=== PATIENT | female | born 1970 | race American Indian/Alaskan Native ===

== ENCOUNTER 2021-09-19 12:27 | Outpatient (CLI) | payer MEDICARE ==
[2021-09-22 17:52] LABS: Albumin 4.4 g/dL (3.8-4.8); Gamma Globulin 1.6 g/dL (0.8-1.7)
[2021-09-25 22:35] LABS: ANA Screen, IFA Positive (Negative)
== END 2021-09-19 12:28 | disposition home or self-care (01) ==
LOC: LAB 12:27
PROVIDERS: ATTEND Specialist
DX: G61.9 Inflammatory polyneuropathy, unspecified (principal); G72.9 Myopathy, unspecified; E07.9 Disorder of thyroid, unspecified; A53.9 Syphilis, unspecified
CPT/HCPCS: 36415; 82085; 82607; 82652; 82747; 83036; 83921; 84165; 84443; 85652; 86038; 86225; 86334; 86431; 86592